=== PATIENT | male | born 1975 | race Caucasian/White ===

== ENCOUNTER 2018-11-30 16:58 | Emergency (ER) | payer OTHER ==
[~2018-11-30] VITALS: Ht 162.6 cm; Wt 65.0 kg
[2018-11-30 17:18] VITALS: Ht 162.6 cm; Wt 65.0 kg
[2018-11-30] MEDS ORDERED: BEN25 PO (17:58)
[2018-11-30] MEDS ORDERED: PERMETHRIN 1% 59 ML TOP ONE (18:00)
[2018-11-30] MEDS ORDERED: DIPHENHYDRAMINE 25 MG CAP PO ONE (18:00)
[2018-11-30] MEDS ORDERED: DEXAMETHASONE 4 MG TAB PO ONE (18:00)
[2018-11-30] MEDS ORDERED: TRIA15CR55 TOP (18:01)
--- NOTE | 2018-11-30 18:06 | ERD ---
ER Documentation Chief Complaint Chief Complaint rashes - possible scabies HPI 43-year-old male presents with an itchy rash for the last month on his trunk and extremities. Rashes mostly on his chest and back. Denies fevers, cough, shortness of breath, bleeding, discharge. Has a history of coronary artery disease but denies diabetes, hypertension, additional past medical history. ROS All systems reviewed and are negative except as per history of present illness. Medications Home Meds Active Scripts Triamcinolone Acetonide (Triamcinolone Acetonide) 0.1% - 15 Gm Cream.gm., 1 APPLIC TOP BID, #1 TUB 30g ok Prov:CATRINA FLYNN MD 11/30/18 Diphenhydramine Hcl* (Benadryl*) 25 Mg Cap, 25 MG PO Q6, #20 CAP Prov:CATRINA FLYNN MD 11/30/18 Allergies Allergies: Coded Allergies: No Known Allergy (Unverified , 11/30/18) PMhx/Soc Medical and Surgical Hx: pt denies Surgical Hx Hx Cardiac Disorders: Yes Smoking Status: Never smoker FmHx Family History: No diabetes, No coronary disease, No other Physical Exam Vitals Vital Signs Date Temp Pulse Resp B/P (MAP) Pulse Ox O2 O2 Flow FiO2 Time Delivery Rate 11/30/18 77 18 125/71 100 Room Air 18:59 (89) 11/30/18 98.2 72 19 130/72 100 17:18 (91) Physical Exam Const: No acute distress Head: Atraumatic Eyes: Normal Conjunctiva ENT: Normal External Ears, Nose and Mouth. Neck: Full range of motion. No meningismus. Resp: Clear to auscultation bilaterally Cardio: Regular rate and rhythm, no murmurs Abd: Soft, non tender, non distended. Normal bowel sounds Skin: No petechiae or purpura. Multiple excoriations and scattered maculopapular lesions on the trunk and back. No obvious serpiginous lesions on the hands. No induration, streaking, vesicles, discharge or bleeding. Back: No midline or flank tenderness Ext: No cyanosis, or edema Neur: Awake and alert Psych: Normal Mood and Affect Results 24 hrs Current Medications Medications Dose Sig/Rebecca Start Time Status Last (Trade) Ordered Route PRN Stop Time Admin Dose Reason Admin 12 mg ONCE ONCE 11/30/18 DC 11/30/18 Dexamethasone PO 18:00 11/30/18 18:05 (Decadron) 18:01 25 mg ONCE ONCE 11/30/18 DC 11/30/18 Diphenhydrami PO 18:00 11/30/18 18:05 ne HCl 18:01 (Benadryl) Permethrin 1 applic ONCE ONCE 11/30/18 DC (Nix) TOP 18:00 11/30/18 18:03 Permethrin 1 applic ONCE ONCE 11/30/18 DC (Elimite 5% TOP 18:30 11/30/18 Cr) 18:31 Procedures/MDM Patient presents with a nonspecific dermatitis on his trunk for the last month. He is concerned about scabies. He has no obvious serpiginous lesions to suggest scabies but will treat empirically given duration with permethrin, Decadron 12 mg here, Benadryl, triamcinolone, primary care follow-up and return precautions for redness, fevers, new worsening symptoms. He has no signs of purpura, life- threatening rashes, cellulitis, anaphylaxis. The patient was stable with no new complaints during the ER course. Clinically, there is no current evidence to suggest meningitis, sepsis, acute abdomen, pneumonia, stroke, acute coronary syndrome, pulmonary embolism, aortic dissection or any other emergent condition appearing to require further evaluation or hospitalization. Patient counseled regarding my diagnostic impression and care plan. Prior to discharge all questions answered. Pt agrees with treatment plan and understands strict return precautions. Pt is instructed to follow up with primary care provider within 24- 48 hours. Precautionary instructions provided including instructions to return to the ER if not improving or for any worsening or changing symptoms or concerns. Disclaimer: Inadvertent spelling and grammatical errors are likely due to EHR/dictation software use and do not reflect on the overall quality of patient care. Also, please note that the electronic time recorded on this note does not necessarily reflect the actual time of the patient encounter. Departure Diagnosis: Primary Impression: Rash Condition: Stable Patient Instructions: Dermatitis, Non-Specific, Scabies [facility] Usted se johnson hecho un examen mdico de control que le indica que no est en alpa condicin que requiera tratamiento urgente en el Departamento de Emergencia. Un estudio ms profundo y el tratamiento de saucedo condicin pueden esperar sin ningn riesgo hasta que usted sea atendida/o en el consultorio de saucedo mdico o alpa clnica. Es responsabilidad suya arreglar alpa paul para el seguimiento del jones. MANEJO DE CONDICIONES NO URGENTES EN EL FUTURO 1) Si usted tiene un mdico de atencin primaria: Usted debera llamar a saucedo mdico de atencin primaria antes de venir al departamento de emergencia. Despus de las horas de consultorio, saucedo doctor o saucedo asociado/a est disponible por telfono. El mdico o enfermero de scot en el servicio telefnico puede asesorarle por sandra medio para atender el problema, o jones contrario se puede programar alpa paul. 2) Si usted no tiene un mdico de atencin primaria: Llame al mdico o clnica de referencia que aparece abajo yan las horas de consultorio para hacer alpa paul para que le vean. CLINICAS: [facility] [phone] [id number] [facility] [phone] [facility] [phone] [facility] [phone] [place] [phone] [facility] [phone] [address] Additional Instructions: Examines normal hoy. Cheque otro vez con saucedo doctor primario en el proximo abbott or regresa para mas o nueva simptomas. CATRINA FLYNN MD Nov 30, 2018 18:05
[2018-11-30] MEDS ORDERED: PERMETHRIN 5% 60 GM CR TOP ONE (18:30)
[2018-11-30 18:59] VITALS: BP 125/71; PULSE 77; RESP 18
== END 2018-11-30 19:00 | disposition home or self-care (01) ==
LOC: FTE 16:58
DX: L30.9 Dermatitis, unspecified (principal)
CPT/HCPCS: 99283